=== PATIENT | female | born 1945 | race Caucasian/White ===

== ENCOUNTER → 2018-04-05 | Outpatient (CLI) | payer MEDICARE, OTHER ==
--- NOTE | 2018-04-05 10:14 | RADIOLOGY REPORT (SQ) ---
EXAM DESCRIPTION: U/S RETROPERITON (RENAL/AORTA) COMPLETED DATE/TIME: 04/05/2018 9:21 am REASON FOR STUDY: RENAL CYST N28.1 CYST OF KIDNEY, ACQUIRED COMPARISON: 08/10/2016. TECHNIQUE: Dynamic and static grayscale images acquired of the kidneys and bladder and recorded on P ACS. Additional selected color Doppler and spectral images recorded. LIMITATIONS: None. FINDINGS: RIGHT KIDNEY: Normal size. Normal echogenicity. Cortical cyst in the lower pole measuring 3.2 cm. No solid or suspicious masses. No hydronephrosis. No calcifications. LEFT KIDNEY: Normal size. Normal echogenicity. Multiple cortical cysts, measuring 1.5 cm, 5.2 cm, a nd 6.4 cm. No solid or suspicious masses. No hydronephrosis. No calcifications. BLADDER: No masses. OTHER FINDINGS: No other significant finding. IMPRESSION: BILATERAL RENAL CYSTS, LARGER AND MORE NUMEROUS ON THE LEFT. NO SIGNIFICANT CHANGE FROM THE PRIOR STUDY. NO OTHER SIGNIFICANT FINDINGS. TECHNICAL DOCUMENTATION: JOB ID: [id number] [employer]- All Rights Reserved Reading location - IP/workstation name: [facility]
== END ==
LOC: RAD 08:45
PROVIDERS: ATTEND Urology
DX: N28.1 Cyst of kidney, acquired (principal)
CPT/HCPCS: 76770

== ENCOUNTER 2019-02-09 06:45 | Day surgery (SDC) | payer MEDICARE ==
[~2019-02-09 06:45] MED LIST: KETOROLAC TROMETHAMINE 0.45% 4 DROP/0.4 ML DROPERETTE OS PRN
[2019-02-09] MEDS ORDERED: EPINEPHRINE INJ/PF 1 MG/1 ML AMPULE ONE (06:58)
[2019-02-09] MEDS ORDERED: CHONDR SU A NA/HYALUR INTRAOC KIT (SURGICARE) ONE (06:59)
[2019-02-09] MEDS ORDERED: LIDOCAINE 1%/PHENYLEPHRINE 1.5% 1 ML VIAL ONE (06:59)
[2019-02-09] MEDS: TETRACAINE HCL 0.5% OPH SOLN 4 ML OS PRN ×3 (07:13→08:02)
[2019-02-09] MEDS ORDERED: MIDAZOLAM 2 MG/2 ML INJ ONE (07:13)
[2019-02-09] MEDS: BESIFLOXACIN HCL 0.6% OPH SUSP 5 ML BOTTLE OS PRN ×4 (07:14→08:21)
[2019-02-09] MEDS: CYCLOPENTOLATE 0.2%/PHENYLEPHRINE 1% OPH SOLN 2 ML OS PRN ×3 (07:14→07:36)
[2019-02-09] MEDS: TROPICAMIDE 1% OPH SOLN 3 ML OS PRN ×3 (07:14→07:36)
[2019-02-09] MEDS: DORZOLAMIDE HCL 2%/TIMOLOL MALEAT 0.5% OPH SOLN 10 ML OS PRN ×2 (08:21)
--- NOTE | 2019-02-09 23:54 | [facility] OPERATIVE REPORT E ---
[facility] Operative Report NAME: ANTON FLOWER AGE: 73Y DATE OF SURGERY: 02/09/2019 ROOM: PREOPERATIVE DIAGNOSIS: CATARACT, LEFT EYE. POSTOPERATIVE DIAGNOSIS: CATARACT, LEFT EYE. OPERATION: Cataract extraction with insertion of an IOL of the left eye. SURGEON: YUSRA POLANCO M.D. ANESTHESIA: Topical. PROCEDURE: After obtaining appropriate consent, the patient's left eye was prepped and draped in sterile fashion as well as the surgeon in a sterile manner and cataract surgery was started. First a paracentesis blade was used to make a side-port incision. Viscoelastic was used to inflate the anterior chamber. Next a 2.4 mm incision was made with a 2.4 mm blade, clear corneal temporally. A continuous capsulorrhexis was made using a cystotome and Utrata forceps. Following this hydrodissection was carried out to make the lens fully loose and mobile and it was rotated 90 degrees. Following this, a ojzjgt-zxd-guzyuge technique was used to phacoemulsify the lens with a CDE of 8.02. The remaining cortex was removed with irrigation/aspiration. Provisc was instilled into the capsular bag to inflate the bag. A SN60WF, 14.5 diopter lens was placed. The remaining viscoelastic material was removed with irrigation/aspiration. Following this, the incision was found to be watertight. Besivance was instilled into the eye and a protective shield was placed over the eye. The patient returned to the postoperative recovery in stable condition. DICTATING PHYSICIAN: YUSRA POLANCO M.D. [id number] PHY#: [id number] ID: [id number] JOB#: [id number] ACCT: [id number] cc:YUSRA POLANCO M.D. >
--- NOTE | 2019-02-09 23:59 | [facility] DISCHARGE SUMMARY E ---
[facility] Discharge Summary NAME: ANTON FLOWER AGE: 73Y ADMITTED: 02/09/2019 DISCHARGED: 02/09/2019 HOSPITAL COURSE: This is a 73-year-old patient who underwent cataract extraction of the left eye. DIAGNOSIS: CATARACT, LEFT EYE. She underwent surgery because she was having difficulty seeing medicine bottles, TV, and road signs. DISCHARGE INSTRUCTIONS: She should be on a regular diet. No bending at the waist, no heavy lifting. She should use moxifloxacin, PROLENSA, predforte at 3 p.m. and 8 p.m. and sleep with a rigid shield. I will see her for her 1 day postoperative tomorrow. DICTATING PHYSICIAN: YUSRA POLANCO M.D. [id number] PHY#: [id number] ID: [id number] JOB#: [id number] ACCT: [id number] cc:YUSRA POLANCO M.D. > MTDD
== END 2019-02-09 09:15 | disposition home or self-care (01) ==
LOC: SC 06:45
PROVIDERS: ATTEND Internal Medicine
DX: H25.12 Age-related nuclear cataract, left eye (principal); H04.123 Dry eye syndrome of bilateral lacrimal glands; H40.1131 Primary open-angle glaucoma, bilateral, mild stage; H43.813 Vitreous degeneration, bilateral; Z96.1 Presence of intraocular lens; H52.4 Presbyopia; I10 Essential (primary) hypertension; E78.00 Pure hypercholesterolemia, unspecified; M41.20 Other idiopathic scoliosis, site unspecified; Z79.899 Other long term (current) drug therapy
CPT/HCPCS: 66984; V2632; J2250; J3490 ×2; A9270; J0171; J2370; 142